=== PATIENT | female | born 1980 | race Native Hawaiian/Other Pacific Islander ===

== ENCOUNTER 2018-02-28 10:37 | Emergency (ER) | payer OTHER ==
[2018-02-28 10:48] VITALS: BMI 18.8
[2018-02-28 10:50] VITALS: RESP 18; TEMP 97.7; O2SAT 98
[2018-02-28] MEDS ORDERED: Oxycodone/Acetaminophen 5/325 mg Tab PO STA (12:21)
--- NOTE | 2018-02-28 12:22 | ED PDOC ---
HPI: General Adult Time Seen by Provider: 02/28/18 11:26 Chief Complaint (Nursing): Finger,Hand,&Wrist Chief Complaint (Provider): finger pain, swelling x 2 days History Per: Patient History/Exam Limitations: no limitations Onset/Duration Of Symptoms: Days (3) Have you had recent travel within the past 21 days to any of the following countries: [place], [place], [place] or [place]?: No Additional Complaint(s): 37 yo female with no medical problems presents for evaluation of left 3rd digit pain and swelling x 3 days. Pt has not taken anything for pain. Pt denies fever/chills. No numbness/tingling. Past Medical History Reviewed: Historical Data, Nursing Documentation, Vital Signs Vital Signs: Last Vital Signs Temp 97.7 F 02/28/18 10:49 Pulse 91 H 02/28/18 10:49 Resp 18 02/28/18 10:49 BP 133/91 H 02/28/18 10:49 Pulse Ox 98 02/28/18 10:49 - Medical History PMH: No Chronic Diseases - Surgical History Surgical History: No Surg Hx - Family History Family History: States: No Known Family Hx - Living Arrangements Living Arrangements: With Family - Social History Current smoker - smoking cessation education provided: No - Home Medications Home Medications: Ambulatory Orders Medication Instructions Recorded Clindamycin [Cleocin] 300 mg PO QID #40 cap 02/28/18 oxyCODONE/Acetaminophen [Percocet 1 ea PO Q6H PRN #10 tab 02/28/18 5/325 mg Tab] - Allergies Allergies/Adverse Reactions: Allergies Allergy/AdvReac Type Severity Reaction Status Date / Time Penicillins Allergy RASH Verified 02/28/18 11:12 Review of Systems ROS Statement: Except As Marked, All Systems Reviewed And Found Negative Constitutional: Negative for: Fever, Chills Musculoskeletal: Positive for: Other Skin: Positive for: Other Physical Exam - Reviewed Nursing Documentation Reviewed: Yes Vital Signs Reviewed: Yes - Physical Exam Appears: Positive for: Well, Non-toxic, No Acute Distress Head Exam: Positive for: ATRAUMATIC, NORMAL INSPECTION, NORMOCEPHALIC Skin: Positive for: Warm. Negative for: Normal Color ((+) erythema and edema, lateral nail fold) Eye Exam: Positive for: Normal appearance ENT: Positive for: Normal ENT Inspection Neck: Positive for: Normal Cardiovascular/Chest: Negative for: Bradycardia, Tachycardia Respiratory: Negative for: Accessory Muscle Use, Respiratory Distress Back: Positive for: Normal Inspection Extremity: Positive for: Normal ROM Neurologic/Psych: Positive for: Alert, Oriented - ECG O2 Sat by Pulse Oximetry: 98 Medical Decision Making Medical Decision Making: Discussed warm compresses. Disposition - Clinical Impression Clinical Impression: Paronychia - Patient ED Disposition Is Patient to be Admitted: No Counseled Patient/Family Regarding: Diagnosis, Need For Followup, Rx Given - Disposition Disposition: Routine/Home Disposition Time: 12:21 Condition: GOOD Additional Instructions: Warm soaks. Prescriptions: Clindamycin [Cleocin] 300 mg PO QID #40 cap oxyCODONE/Acetaminophen [Percocet 5/325 mg Tab] 1 ea PO Q6H PRN #10 tab PRN Reason: Pain, Severe (8-10) Instructions: Paronychia (DC) Forms: [employer] (Ecuadorean)
[2018-02-28] MEDS ORDERED: Oxycodone/Acetaminophen 5/325 mg Tab ONE (12:33)
[2018-03-01 00:15] VITALS: BP 130/90; PULSE 88
== END 2018-02-28 12:56 | disposition home or self-care (01) ==
LOC: H.ER 10:37
DX: L03.012 Cellulitis of left finger (principal); Z88.0 Allergy status to penicillin